=== PATIENT | male | born 1930 ===

== ENCOUNTER 2018-12-20 07:39 | Day surgery (SDC) | payer MEDICARE ==
[~2018-12-20 07:39] MED LIST: Acetaminophen TAB* 325 MG PO PRN
[2018-12-20] MEDS ORDERED: Midazolam* 1 MG/ML 2 ML VIAL (2 MG) ONE (09:33)
[2018-12-20 11:25] VITALS: BP 117/63
[2018-12-20] MEDS ORDERED: Tropicamide 1% OPTH.SOL* BTL ONE (11:39)
[2018-12-20] MEDS ORDERED: Tetracaine 0.5% OPTH.SOL 4 ML* 1 DROP BTL ONE (11:39)
[2018-12-20] MEDS ORDERED: Lidocaine 1% MPF ** 5 ML VIAL ONE (11:39)
[2018-12-20] MEDS ORDERED: acetaZOLAMIDE TAB* 250 MG ONE (11:39)
[2018-12-20] MEDS ORDERED: Ketorolac 0.5% OPHTH (NF) 0.5 % 5 ML BTL ONE (11:39)
[2018-12-20] MEDS ORDERED: Povidone Iodine 5% OPTH* 30 ML BTL ONE (11:39)
[2018-12-20] MEDS ORDERED: Neomycin/Polymy/Dex OPHTH.OIN* 3.5 GM ONE (11:39)
[2018-12-20] MEDS ORDERED: Phenylephrine OPHTH SOL 2.5%* 2 ML ONE (11:39)
[2018-12-20] MEDS ORDERED: Cyclopentolate 1% OPTH.SOL* 2 ML BTL ONE (11:39)
--- NOTE | 2018-12-20 12:35 | OP ---
OPERATIVE REPORT: DATE OF OPERATION: 12/20/18 DATE OF : [birth year] SURGEON: Montez Varner MD. ANESTHESIA: Monitored anesthesia care. PRE-OP DIAGNOSIS: Cataract, right eye. POST-OP DIAGNOSIS: Cataract, right eye, with floppy iris syndrome. OPERATIVE PROCEDURE: Extracapsular cataract extraction of the right eye with intraocular lens implan t. IMPLANTS: SN60WF 22.5 diopter lens to the right eye. COMPLICATIONS: None. DESCRIPTION OF PROCEDURE: The patient was given phenylephrine 2.5% and cyclopentolate 1% eye drops t o the operative eye in the preoperative area. The patient was taken to the operating room, where a t oneida-out was taken to identify the correct patient, site and side of surgery. The patient's right eye was prepped and draped in the usual sterile fashion with 5% Betadine. A second time-out was taken t o verify the correct patient, side and site of surgery, and correct lens implant. A lid speculum was placed to the right eye. A 1 mm paracentesis blade was used to make a clear corneal incision in the superotemporal position. Preservative-free 1% lidocaine was injected into the anterior chamber. Dis CoVisc was then injected into the anterior chamber. A 2.75 mm keratome blade was used to make a trip lanar incision at the inferotemporal position. A Malyugin ring was then inserted due to poor pupil d ilation and evidence of floppy iris syndrome. A cystotome initiated a capsulorrhexis, which was comp leted with Utrata forceps in a continuous and curvilinear manner. Hydrodissection of the lens was pe rformed with BSS on a cannula. The lens could be spun in a capsular bag. The phacoemulsification roland ndpiece was used with a [id number] technique to remove the nucleus. The I/A handpiece then r emoved the residual cortical lens material. DisCoVisc was then injected to inflate the capsular bag. The planned SN60WF 22.5 diopter lens was then injected into the capsular bag. The Malyugin ring wa s then removed from the anterior chamber. The residual DisCoVisc was removed from the eye with the I /A handpiece. The corneal incisions were hydrated and no leaks occurred at physiologic pressure arou nd 20 mmHg per palpation. The lid speculum was removed and drapes removed. Maxitrol ointment was pl aced to the surface of the operative eye. An adhesive patch and shield was then placed on the operat danya eye. The patient was taken to the postoperative area in stable condition. [id number]/[facility] #: [id number]
== END 2018-12-20 10:35 | disposition home or self-care (01) ==
LOC: OREAST 07:39
PROVIDERS: ATTEND Student in an Organized Health Care Education/Training Program
DX: H25.811 Combined forms of age-related cataract, right eye (principal); H21.81 Floppy iris syndrome; I10 Essential (primary) hypertension; I48.0 Paroxysmal atrial fibrillation; Z79.01 Long term (current) use of anticoagulants; K21.9 Gastro-esophageal reflux disease without esophagitis; E11.9 Type 2 diabetes mellitus without complications; Z79.84 Long term (current) use of oral hypoglycemic drugs; E78.00 Pure hypercholesterolemia, unspecified; Z87.891 Personal history of nicotine dependence
CPT/HCPCS: A9270-GY; J2250; V2632

== ENCOUNTER 2018-12-27 07:28 | Day surgery (SDC) | payer MEDICARE ==
[~2018-12-27 07:28] MED LIST changes: +Buffered Lidocaine 1% SYRIN* 1 ML/SYRINGE INTRADERM ONE
[2018-12-27] MEDS ORDERED: fentaNYL* 50 MCG/ML 2 ML VIAL (100 MCG VIAL) ONE (08:24)
[2018-12-27] MEDS ORDERED: Midazolam* 1 MG/ML 2 ML VIAL (2 MG) ONE (08:25)
[2018-12-27] MEDS ORDERED: Glycopyrrolate IV* 0.2 MG/ML 1 ML VIAL ONE (08:29)
[2018-12-27] MEDS ORDERED: Cyclopentolate 1% OPTH.SOL* 2 ML BTL ONE (09:11)
[2018-12-27] MEDS ORDERED: Neomycin/Polymy/Dex OPHTH.OIN* 3.5 GM ONE (09:11)
[2018-12-27] MEDS ORDERED: Povidone Iodine 5% OPTH* 30 ML BTL ONE (09:11)
[2018-12-27] MEDS ORDERED: Ketorolac 0.5% OPHTH (NF) 0.5 % 5 ML BTL ONE (09:11)
[2018-12-27] MEDS ORDERED: Tropicamide 1% OPTH.SOL* BTL ONE (09:11)
[2018-12-27] MEDS ORDERED: Lidocaine 1% MPF ** 5 ML VIAL ONE (09:11)
[2018-12-27] MEDS ORDERED: Phenylephrine OPHTH SOL 2.5%* 2 ML ONE (09:11)
[2018-12-27] MEDS ORDERED: Tetracaine 0.5% OPTH.SOL 4 ML* 1 DROP BTL ONE (09:11)
[2018-12-27] MEDS ORDERED: acetaZOLAMIDE TAB* 250 MG ONE (09:11)
[2018-12-27 10:52] VITALS: BP 123/52
--- NOTE | 2018-12-27 21:27 | OP ---
DATE OF OPERATION: 12/27/18 - [facility] DATE OF : [birth year] SURGEON: Montez Varner MD ANESTHESIA: Monitored anesthesia care. PREOPERATIVE DIAGNOSIS: Cataract, left eye. POSTOPERATIVE DIAGNOSIS: Cataract, left eye with floppy iris syndrome. OPERATIVE PROCEDURE: Extracapsular cataract extraction of the left eye with intraocular lens implant. IMPLANT: SN60WF 22.5 diopter lens to the left eye. COMPLICATIONS: None. DESCRIPTION OF PROCEDURE: The patient was given phenylephrine 2.5 % and cyclopentolate 1% eye drops to the operative eye in the preoperative area. The patient was taken to the operating room where a time-out was taken to identify the correct patient, site, and side of surgery. The patient's left eye was prepped and draped in the usual sterile fashion with 5% Betadine. A second time -out was taken to verify the correct patient, side, and site of surgery, and correct lens implant. A lid speculum was placed to the left eye. A 1 mm paracentesis blade was used to make a clear corneal incision in the inferior temporal position. Preservative-free 1% lidocaine was injected into the anterior chamber. DisCoVisc was then injected into the anterior chamber. A 2.75 mm keratome blade was used to make a triplanar incision at the superotemporal position. A Malyugin ring was then inserted due to poor pupil dilation and evidence of floppy iris syndrome. A cystotome initiated and a capsulorrhexis, which was completed with Utrata forceps in a continuous and curvilinear manner. Hydrodissection of the lens was performed with BSS on a cannula. The lens could be spun in the capsular bag. The phacoemulsification handpiece was used with a [id number] technique to remove the nucleus. The IA handpiece then removed the residual cortical lens material. DisCoVisc was injected to inflate the capsular bag. The planned SN60WF 22.5 diopter lens was then injected in the capsular bag. The Malyugin ring was then removed from the anterior chamber. The residual DisCoVisc was removed from the eye with the IA handpiece. The corneal incisions were hydrated and no leaks occurred at physiologic pressure around 20 mmHg per palpation. The lid speculum was removed and drapes removed. Maxitrol ointment was placed to the surface of the operative eye. An adhesive patch and shield was then placed on the operative eye. The patient was taken to the postoperative area in stable condition. [id number]/[facility] #: [id number] NOLAN
== END 2018-12-27 10:45 | disposition home or self-care (01) ==
LOC: OREAST 07:28
PROVIDERS: ATTEND Student in an Organized Health Care Education/Training Program
DX: H25.812 Combined forms of age-related cataract, left eye (principal); H21.81 Floppy iris syndrome; E11.9 Type 2 diabetes mellitus without complications; Z79.84 Long term (current) use of oral hypoglycemic drugs; I48.91 Unspecified atrial fibrillation; Z79.01 Long term (current) use of anticoagulants; I10 Essential (primary) hypertension; E78.00 Pure hypercholesterolemia, unspecified; Z87.891 Personal history of nicotine dependence
CPT/HCPCS: A9270-GY; J2250; J3010; V2632